=== PATIENT | male | born 1990 | race Caucasian/White ===

== ENCOUNTER → 2025-06-04 10:00 | Outpatient (REF) | payer BC, SELFPAY | LOC: RAD 10:00 | PROVIDERS: ATTENDING PHYSICIAN Nurse Practitioner Adult Health | DX: R51.9 Headache, unspecified (principal) | CPT/HCPCS: 70450 ==

== ENCOUNTER → 2025-07-09 13:10 | Outpatient (REF) | payer BC, SELFPAY | LOC: RAD 13:10 | PROVIDERS: ATTENDING PHYSICIAN Registered Nurse | DX: R51.9 Headache, unspecified (principal); G44.53 Primary thunderclap headache | CPT/HCPCS: 70496; 70498; Q9967 ==